=== PATIENT | male | born 1960 | race Caucasian/White ===

== ENCOUNTER 2017-01-10 11:00 | Inpatient (IN) | payer MEDICARE ==
[~2017-01-10] VITALS: Ht 165.1 cm; Wt 77.3 kg
[~2017-01-10 11:00] MED LIST: ALDACTONE25 MG PO; BAYER CHEWABLE81 MG PO; COLACE100 MG PO; COREG6.25 MG PO; CRESTOR10 MG PO; FERROUS SULFAT325 MG PO; K-DUR20 MEQ PO; LASIX40 MG PO; TRIGLIDE160 MG PO; VASOTEC2.5 MG PO
[2017-01-10 11:27] LABS: BASOPHILS 0.4 % (0.0-2.0); EOSINOPHILS 3.2 % (0-7); HEMATOCRIT 30.7 % (42.0-54.0); HEMOGLOBIN 9.6 g/dL (13.5-17.5); IMMATURE GRANULOCYTES 0.2 % (0-5); LYMPHOCYTES 8.5 % (15-50); MCH 29.7 pg (26.0-34.0); MCHC 31.3 g/dL (31.0-37.0); MONOCYTES 8.3 % (2-11); NEUTROPHILS 79.4 % (40-80); RBC 3.23 10x6/uL (4.20-6.10); RDW 15.2 % (11.5-14.5); WBC 8.5 10x3/uL (4.8-10.8)
[2017-01-10 11:30] LABS: PLATELET COUNT 188 10x3/uL (130-400)
[2017-01-10 11:37] LABS: INR 1.26 (0.85-1.17); PROTIME 15.7 SECONDS (11.6-15.0)
[2017-01-10 11:38] LABS: APTT 34.1 SECONDS (22.8-39.4)
[2017-01-10 11:44] LABS: ALBUMIN 3.3 g/dL (3.4-5.0); ALKALINE PHOSPHATASE 88 U/L (46-116); ALT (SGPT) 16 U/L (10-68); BILIRUBIN - TOTAL 0.73 mg/dL (0.2-1.3); CALC OSMOLALITY 289 mosm/kg (275-300); CALCIUM 8.2 mg/dL (8.5-10.1); CARBON DIOXIDE 25.1 mmol/L (21.0-32.0); CHLORIDE - SERUM 106 mmol/L (98-107); POTASSIUM - SERUM 3.2 mmol/L (3.5-5.1); PROTEIN - SERUM 7.2 g/dL (6.4-8.2); SODIUM 143 mmol/L (136-145); UREA NITROGEN 14 mg/dL (7-18); eGFR NON AFRICAN AMERICAN 82 mL/min (90-120)
[2017-01-10 11:45] LABS: GLUCOSE 168 mg/dL (74-106)
[2017-01-10 11:52] LABS: CARBAMAZEPINE (TEGRETOL) 0.2 ug/mL (4.0-12.0); CREATINE KINASE 68 UL (21-232); MAGNESIUM - SERUM 1.9 mg/dL (1.8-2.4); PRO BNP 5143 pg/mL (0-125); TROPONIN-I 0.037 ng/mL (0.000-0.060)
[2017-01-10 12:10] LABS: APPEARANCE CLEAR (CLEAR); BACTERIA FEW /hpf (NONE SEEN); BILIRUBIN NEGATIVE (NEGATIVE); COLOR YELLOW (YELLOW); EPITHELIAL CELLS RARE /hpf (0-5); GLUCOSE NEGATIVE (NEGATIVE); HYALINE CAST RARE /lpf (NONE SEEN); KETONE NEGATIVE (NEGATIVE); LEUKOCYTE ESTERASE TRACE (NEGATIVE); MUCUS <1+ /lpf (NONE SEEN); NITRITE NEGATIVE (NEGATIVE); PROTEIN NEGATIVE (NEGATIVE); WHITE CELLS - URINE 0-5 /hpf (0-5)
[2017-01-10 15:07] VITALS: BMI 28.0
[2017-01-10] MEDS ORDERED: ATIVAN1 MG PO (15:23)
[2017-01-10] MEDS ORDERED: LIPITOR20 MG PO (15:24)
[2017-01-10] MEDS ORDERED: BENADRYL25 MG PO (15:25)
[2017-01-10] MEDS ORDERED: CELEXA20 MG PO (15:26)
[2017-01-10] MEDS ORDERED: BENZTROPINE ME0.5 MG PO (15:26)
[2017-01-10] MEDS ORDERED: CLARITIN 10 MG10 MG PO (15:30)
[2017-01-10] MEDS ORDERED: CLOBETASOL PROP15 GM TP (15:31)
[2017-01-10] MEDS ORDERED: CLOZARIL25 MG PO (15:32)
[2017-01-10] MEDS ORDERED: CLOZARIL100 MG PO (15:32)
[2017-01-10] MEDS ORDERED: NEURONTIN 300300 MG PO (15:33)
[2017-01-10] MEDS ORDERED: FISH OIL 1,0001 CA1 PO (15:33)
[2017-01-10] MEDS ORDERED: IPRAT-ALBUT 0.5-3 ML UPD (15:33)
[2017-01-10] MEDS ORDERED: HYDROCORTISONE30 G9 TOPICAL (15:34)
[2017-01-10] MEDS ORDERED: HYDROCODON-ACE1 EAC7 PO (15:35)
[2017-01-10] MEDS ORDERED: TRIAMCINOLONE A60 M1 TP (15:35)
[2017-01-10] MEDS ORDERED: TRILEPTAL300 MG PO (15:36)
[2017-01-10 20:00] VITALS: BP 158/94
--- NOTE | 2017-01-10 20:00 | NUR ---
RESUMED CARE OF PT, LYING IN BED WITH EYES CLOSED RESPIRATIONS EVEN AND UNLABORED ON 2LPM VIA NC. 73 SR ON TELEMETRY. LEFT AC SALINE LOCKED. NO NEEDS NOTED AT THIS TIME, CALL LIGHT IN REACH. WILL CONTINUE TO MONITOR. SEE NURSE ASSESSMENT.
--- NOTE | 2017-01-11 00:05 | NUR ---
PORTABLE PINCH RIVETER AT BEDSIDE TO OBTAIN VITALS, CALL LIGHT IN REACH. WILL CONTINUE WITH PLAN OF CARE.
[2017-01-11 04:00] VITALS: BP 166/86
[2017-01-11 06:55] LABS: BASOPHILS 0.4 % (0.0-2.0); EOSINOPHILS 5.4 % (0-7); HEMOGLOBIN 9.8 g/dL (13.5-17.5); IMMATURE GRANULOCYTES 0.1 % (0-5); LYMPHOCYTES 16.5 % (15-50); MCH 30.1 pg (26.0-34.0); MCHC 31.6 g/dL (31.0-37.0); MCV 95.1 fL (80.0-100.0); MEAN PLATELET VOLUME 9.4 fL (7.4-10.4); MONOCYTES 10.4 % (2-11); NEUTROPHILS 67.2 % (40-80); PLATELET COUNT 211 10x3/uL (130-400); RBC 3.26 10x6/uL (4.20-6.10); RDW 15.4 % (11.5-14.5)
[2017-01-11 07:22] LABS: CALC OSMOLALITY 285 mosm/kg (275-300); CALCIUM 8.6 mg/dL (8.5-10.1); CARBON DIOXIDE 26.3 mmol/L (21.0-32.0); CHLORIDE - SERUM 106 mmol/L (98-107); CREATININE - SERUM 0.8 mg/dL (0.6-1.3); POTASSIUM - SERUM 3.2 mmol/L (3.5-5.1); PRO BNP 6922 pg/mL (0-125); SODIUM 143 mmol/L (136-145); UREA NITROGEN 14 mg/dL (7-18); eGFR NON AFRICAN AMERICAN > 90 mL/min (90-120)
[2017-01-11 07:28] LABS: GLUCOSE 94 mg/dL (74-106)
[2017-01-11 09:00] VITALS: BP 144/99
[2017-01-11 11:08] VITALS: Ht 165.1 cm; Wt 77.3 kg
[2017-01-11] MEDS ORDERED: LASIX40 MG PO (11:14)
[2017-01-11 12:29] VITALS: BP 134/79
--- NOTE | 2017-01-11 17:36 | NUR ---
WOKE PT FOR EVENING MED PASS. PT VERY ODD, JUMPED UP IN BED AND I ASSISTED HIM WITH HIS DINNER TRAY AND HE STARTED EATING HIS MEAL VERY FAST. PT HAS BEEN VERY TIRED ALL DAY AND HASNT WANTED TO EAT OR DO ANYTHING. THIS IS PTS BASELINE APPARENTLY PER ROUNDING DOCTORS. VSS. PT DENIES ANY CURRENT PAIN OR NEEDS. CL IN REACH, BED IN LOWEST, SIDE RAILS X2. WILL CPOC.
[2017-01-11 20:00] VITALS: BP 139/80
--- NOTE | 2017-01-11 20:00 | NUR ---
PT SITTING IN CHAIR IN DOORWAY OF HIS ROOM. VOICING NO NEEDS. FLAT AFFECT. PIV SALINE LOCKED IN LEFT A/C. SR/SB PER TELEMETRY. CPOC.
--- NOTE | 2017-01-11 22:00 | NUR ---
HS MEDS GIVEN. LASIX GIVEN SIVP. WHILE PT SITTING IN CHAIR, HE SAID HIS LEFT FOOT ALWAYS HURTS. PROVIDED NORCO FOR PAIN. PT REMAINS SITTING IN CHAIR IN DOORWAY WATCHING THE STAFF ACTIVITIES. CPOC.
[2017-01-12] VITALS: BP 136/72
--- NOTE | 2017-01-12 03:13 | NUR ---
PT RESTING IN BED WITH NO DISTRESS. RESPS EVEN/NONLABORED. CALL LIGHT IN REACH.
[2017-01-12 04:47] LABS: BASOPHILS 0.6 % (0.0-2.0); EOSINOPHILS 9.3 % (0-7); HEMATOCRIT 28.9 % (42.0-54.0); HEMOGLOBIN 9.1 g/dL (13.5-17.5); IMMATURE GRANULOCYTES 0.2 % (0-5); LYMPHOCYTES 19.2 % (15-50); MCH 29.9 pg (26.0-34.0); MCHC 31.5 g/dL (31.0-37.0); MCV 95.1 fL (80.0-100.0); MEAN PLATELET VOLUME 9.3 fL (7.4-10.4); MONOCYTES 12.5 % (2-11); NEUTROPHILS 58.2 % (40-80); PLATELET COUNT 202 10x3/uL (130-400); RBC 3.04 10x6/uL (4.20-6.10); RDW 15.4 % (11.5-14.5); WBC 6.2 10x3/uL (4.8-10.8)
[2017-01-12 04:52] LABS: CALC OSMOLALITY 283 mosm/kg (275-300); CALCIUM 8.2 mg/dL (8.5-10.1); CARBON DIOXIDE 28.1 mmol/L (21.0-32.0); CHLORIDE - SERUM 107 mmol/L (98-107); CREATININE - SERUM 0.8 mg/dL (0.6-1.3); GLUCOSE 79 mg/dL (74-106); POTASSIUM - SERUM 3.2 mmol/L (3.5-5.1); SODIUM 142 mmol/L (136-145); UREA NITROGEN 17 mg/dL (7-18); eGFR NON AFRICAN AMERICAN > 90 mL/min (90-120)
[2017-01-12 08:25] VITALS: BP 178/102
--- NOTE | 2017-01-12 09:52 | NUR ---
TELEMETRY SR. RESP UL ON 02 2L NC. RESTS WITH EYES CLOSED. CALL LIGHT IN REACH. WILL CONT. PLAN OF CARE.
[2017-01-12 12:28] VITALS: BP 167/100
--- NOTE | 2017-01-12 13:11 | NUR ---
IV RESTARTED TO LEFT FA WITH 22 GAUGE CATH X 1 STCK BY BUBBA CORRAL. LINE IS PATENT.
[2017-01-12 15:01] VITALS: BP 151/92
--- NOTE | 2017-01-12 16:02 | NUR ---
ASSUMED CARE OF PT. IN BEDSIDE CHAIR. DENIES ANY NEEDS. FLAT EFFECT. LEFT AC SL. O2 AT 2 L/M.TELEMERTY SHOWS SR
[2017-01-12 19:00] VITALS: BP 185/101
--- NOTE | 2017-01-12 19:44 | NUR ---
PT AWAKE, ALERT, ORIENTED, SITTING UP IN CHAIR DOING BREATHING TX. PT DENIES ANY ACUTE NEEDS. WILL CONTINUE TO MONITOR CLOSELY.
--- NOTE | 2017-01-12 20:58 | NUR ---
HS MEDS GIVEN WITH FRESH ICEWATER. PT DENIES PAIN OR NEEDS, CL IN REACH, WILL CONT TO MONITOR.
--- NOTE | 2017-01-12 22:34 | NUR ---
PT AT NURSES STATION ASKING FOR SOMETHING TO EAT, VALERIA CALLOWAY GIVEN.
[2017-01-13 04:00] VITALS: BP 150/83
--- NOTE | 2017-01-13 04:38 | NUR ---
INSTALLER METAL FLOORING AT BED SIDE TO OBTAIN VITALS, NO NEEDS VOICED.
[2017-01-13 06:11] LABS: BASOPHILS 0.4 % (0.0-2.0); EOSINOPHILS 5.7 % (0-7); HEMATOCRIT 30.4 % (42.0-54.0); HEMOGLOBIN 9.5 g/dL (13.5-17.5); IMMATURE GRANULOCYTES 0.2 % (0-5); LYMPHOCYTES 10.3 % (15-50); MCHC 31.3 g/dL (31.0-37.0); MCV 95.9 fL (80.0-100.0); MEAN PLATELET VOLUME 9.2 fL (7.4-10.4); MONOCYTES 9.7 % (2-11); NEUTROPHILS 73.7 % (40-80); PLATELET COUNT 236 10x3/uL (130-400); RBC 3.17 10x6/uL (4.20-6.10); RDW 15.7 % (11.5-14.5)
[2017-01-13 06:15] LABS: WBC 8.4 10x3/uL (4.8-10.8)
[2017-01-13 06:27] LABS: CALC OSMOLALITY 281 mosm/kg (275-300); CALCIUM 8.5 mg/dL (8.5-10.1); CARBON DIOXIDE 26.6 mmol/L (21.0-32.0); CHLORIDE - SERUM 105 mmol/L (98-107); CREATININE - SERUM 0.8 mg/dL (0.6-1.3); GLUCOSE 111 mg/dL (74-106); POTASSIUM - SERUM 3.4 mmol/L (3.5-5.1); SODIUM 140 mmol/L (136-145); UREA NITROGEN 18 mg/dL (7-18); eGFR NON AFRICAN AMERICAN > 90 mL/min (90-120)
--- NOTE | 2017-01-13 07:15 | NUR ---
PT AAOX4 UP WALKING IN ROOM NAD NOTED PT DENIES ANY NEEDS OR DISCOMFORT AT THIS TIME WILL CONTINUE TO MONITOR
--- NOTE | 2017-01-13 07:31 | NUR ---
ASSESSMENT COMPLETED. TELEMERTY SHOWS SR 66. O2 AT 2L/M PER NC. PT HAS A LEFT AC SL. UP AB [place]. DENIES ANY NEEDS. WILL MONITOR
[2017-01-13 07:58] VITALS: BP 161/91
--- NOTE | 2017-01-13 09:43 | NUR ---
LYING QUIETLY. STATES HES STILL SLEEPY. SR UP WITH CALL LIGHT IN REACH. TELEMERTY SHOWS PACED RHYTHM
[2017-01-13 11:54] VITALS: BP 134/73
--- NOTE | 2017-01-13 13:50 | NUR ---
PT DISCHARGED. IV DCD WITH TIP INTACT. INSTRUCTIONS GIVEN TO PT AND INSTRUTIONS SENT TO CARE HOME
--- NOTE | 2017-01-13 14:06 | NUR ---
TO PRIVATE VAN PER WHEELCHAIR. REPORT CALL TO VICKI URIBE AT [facility]
== END 2017-01-13 14:11 | DRG 293 ==
LOC: D.ER 11:00 → D.M2 13:31
PROVIDERS: Emergency Medicine; Family Medicine; ADMIT Family Medicine
DX: I11.0 Hypertensive heart disease with heart failure (principal); I50.41 Acute combined systolic (congestive) and diastolic (congestive) heart failure; I42.0 Dilated cardiomyopathy; E87.6 Hypokalemia; F20.9 Schizophrenia, unspecified; I25.10 Atherosclerotic heart disease of native coronary artery without angina pectoris; Z95.1 Presence of aortocoronary bypass graft; Z87.891 Personal history of nicotine dependence

== ENCOUNTER → 2017-01-19 12:31 | Outpatient (CLI) | payer MEDICARE ==
[2017-01-11 11:08] VITALS: BMI 27.9
--- NOTE | ~2017-01-19 | EC ---
PATIENT:IOANA PRECIADO DATE OF SERVICE: 01/19/17 SEX: M MEDICAL RECORD: [id number] DATE OF : 62 LOCATION:D[facility] AGE OF PATIENT: 56 ADMISSION DATE: 01/19/17 REFERRING PHYSICIAN: INTERPRETING PHYSICIAN: KELSEY LEWIS MD ECHOCARDIOGRAM REPORT ECHO CHARGES 4 ECHO COMPLETE CLINICAL DIAGNOSIS: HX OF CHF/CAD/CABG ASSESS EF AND VALVES ECHOCARDIOGRAPHIC MEASUREMENTS (adult normal given) AC root (d.<3.7cm) 3.9 LV Septum d (<1.2 cm> 0.80 Valve Excursion 2.1 LV Septum (systole) 1.1 Left Atria (s.<4.0cm> 4.4 LVPW d(<1.2cm) 1.4 RV (d.<2.3cm) 4.3 LVPW (sytole) 1.7 LV diastole(<5.6CM) 7.3 MV E-F(>70mm/sec) LV systole 6.1 LVOT Diameter 1.8 MV exc.(>10mm) Est.ejection fraction (50-75%) Pericardial Effusion N DOPPLER: LVIT A 56.0 E 129 LA RVSP 46 LVOT 92 AOP1/2T 563 Asc. Ao 128 RVOT 119 RA PA 131 AV Gradient Peak 6.59 AV Mean 3.30 AV Area 2.0 MV Gradient Peak 6.90 MV Mean 1.96 MV Area COMMENTS: Shipping And Receiving Coordinator: Angela JONES [employer] Mechanic Helper:Nimisha Lewis TAPE# PACS DATE OF SERVICE: 01/19/2017 Echocardiogram FINDINGS: 1. Left ventricular chamber size is dilated. Left ventricular systolic function is markedly depressed. Overall ejection fraction 25%. 2. Left atrium, right atrium, and right ventricular chamber sizes are all moderately dilated. 3. Valvular structures have normal structure and motion. ECHOCARDIOGRAM REPORT [id number] IOANA PRECIADO 4. Doppler interrogation reveals mild to moderate aortic insufficiency, mild mitral regurgitation, mild tricuspid regurgitation, no other valvular insufficiency or stenosis. Pulmonary systolic pressure is mildly elevated estimated at 46 mmHg. 5. No evidence of pericardial effusion or left ventricular thrombus. TRANSINT:[id number] Voice Confirmation ID: [id number] DOCUMENT ID: [id number] KELSEY LEWIS MD CC: [id number] DICTATION DATE: 01/19/17 1409 BURNING PLANT OPERATOR: 01/20/17 0151 DEP CLI 01/19/17 [facility] [address] [place] [address]
[~2017-01-19 12:31] MED LIST changes: +ATIVAN1 MG PO; +BENADRYL25 MG PO; +BENZTROPINE ME0.5 MG PO; +CELEXA20 MG PO; +CLARITIN 10 MG10 MG PO; +CLOBETASOL PROP15 GM TP; +CLOZARIL100 MG PO; +CLOZARIL25 MG PO; +FISH OIL 1,0001 CA1 PO; +HYDROCODON-ACE1 EAC7 PO; +HYDROCORTISONE30 G9 TOPICAL; +IPRAT-ALBUT 0.5-3 ML UPD; +LIPITOR20 MG PO; +NEURONTIN 300300 MG PO; +TRIAMCINOLONE A60 M1 TP; +TRILEPTAL300 MG PO
== END | disposition home or self-care (01) ==
LOC: D.ECHO 12:31
DX: D64.9 Anemia, unspecified (principal)

== ENCOUNTER 2017-01-21 16:40 | Emergency (ER) | payer MEDICARE ==
[2017-01-11 11:08] VITALS: BMI 27.9
[2017-01-21 17:29] LABS: BASOPHILS 0.5 % (0.0-2.0); EOSINOPHILS 5.1 % (0-7); HEMATOCRIT 31.8 % (42.0-54.0); HEMOGLOBIN 10.2 g/dL (13.5-17.5); IMMATURE GRANULOCYTES 0.1 % (0-5); LYMPHOCYTES 13.4 % (15-50); MCH 30.8 pg (26.0-34.0); MCHC 32.1 g/dL (31.0-37.0); MCV 96.1 fL (80.0-100.0); MEAN PLATELET VOLUME 9.1 fL (7.4-10.4); MONOCYTES 7.2 % (2-11); NEUTROPHILS 73.7 % (40-80); PLATELET COUNT 243 10x3/uL (130-400); RBC 3.31 10x6/uL (4.20-6.10); RDW 16.4 % (11.5-14.5); WBC 7.8 10x3/uL (4.8-10.8)
[2017-01-21 17:48] LABS: ALBUMIN 3.4 g/dL (3.4-5.0); ALKALINE PHOSPHATASE 93 U/L (46-116); ALT (SGPT) 16 U/L (10-68); BILIRUBIN - TOTAL 0.58 mg/dL (0.2-1.3); CALC OSMOLALITY 292 mosm/kg (275-300); CALCIUM 7.8 mg/dL (8.5-10.1); CHLORIDE - SERUM 110 mmol/L (98-107); CREATININE - SERUM 0.9 mg/dL (0.6-1.3); GLUCOSE 117 mg/dL (74-106); SODIUM 147 mmol/L (136-145); UREA NITROGEN 12 mg/dL (7-18); eGFR NON AFRICAN AMERICAN > 90 mL/min (90-120)
[2017-01-21 17:49] LABS: PROTEIN - SERUM 6.7 g/dL (6.4-8.2)
[2017-01-21 17:51] LABS: POTASSIUM - SERUM 2.8 mmol/L (3.5-5.1)
[2017-01-21 20:08] LABS: APPEARANCE HAZY (CLEAR); BILIRUBIN NEGATIVE (NEGATIVE); COLOR DK YELLOW (YELLOW); GLUCOSE NEGATIVE (NEGATIVE); KETONE NEGATIVE (NEGATIVE); LEUKOCYTE ESTERASE TRACE (NEGATIVE); NITRITE NEGATIVE (NEGATIVE); PROTEIN 1+ mg/dL (NEGATIVE)
[2017-01-21 20:12] LABS: BACTERIA MODERATE /hpf (NONE SEEN); EPITHELIAL CELLS 0-5 /hpf (0-5); MUCUS >1+ /lpf (NONE SEEN)
[2017-01-21 20:20] LABS: UDS - AMPHET NEGATIVE QUAL (NEGATIVE); UDS - BARB NEGATIVE QUAL (NEGATIVE); UDS - BENZO NEGATIVE QUAL (NEGATIVE); UDS - COCAINE NEGATIVE QUAL (NEGATIVE); UDS - METH NEGATIVE QUAL (NEGATIVE); UDS - OPIATE NEGATIVE QUAL (NEGATIVE); UDS - PCP NEGATIVE QUAL (NEGATIVE); UDS - THC NEGATIVE QUAL (NEGATIVE)
== END 2017-01-22 13:42 | disposition other institution (70) ==
LOC: D.ER 16:40
PROVIDERS: Emergency Medicine
DX: R06.00 Dyspnea, unspecified (principal); D64.9 Anemia, unspecified; R45.851 Suicidal ideations; F32.9 Major depressive disorder, single episode, unspecified; F20.9 Schizophrenia, unspecified; E87.6 Hypokalemia; I50.9 Heart failure, unspecified; I10 Essential (primary) hypertension; F17.200 Nicotine dependence, unspecified, uncomplicated; I45.4 Nonspecific intraventricular block